=== PATIENT | female | born 2005 | race African-American/Black ===

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

== ENCOUNTER 2024-01-12 09:40 | Outpatient (REF) | payer OTHER, MEDICAID, SELFPAY ==
--- NOTE | ~2024-01-12 | XR_ITS ---
EXAMINATION: XR SHOULDER, LEFT CLINICAL INFORMATION: Left shoulder pain COMPARISON: None available. TECHNIQUE: AP external rotation, Grashey, scapular Y, and axillary views of the left shoulder. FINDINGS: The bones and soft tissues are normal. No fracture. Glenohumeral and acromioclavicular alignment is anatomic with normal joint space. No abnormal soft tissue calcifications. XR/XR shoulder LT min 2V IMPRESSION: Normal left shoulder. Electronically signed by: Carlos Stoll MD 02/05/2024 06:59 PM EDT RP
== END 2024-01-12 09:41 | disposition home or self-care (01) ==
LOC: HO.XRAY 09:40
PROVIDERS: Visit Provider Physician Assistant
DX: M25.512 Pain in left shoulder (principal); M77.8 Other enthesopathies, not elsewhere classified
CPT/HCPCS: 73030

== ENCOUNTER 2024-01-12 10:21 | Outpatient (AMB) | payer OTHER, MEDICAID, SELFPAY ==
--- NOTE | 2024-01-12 10:23 | A.OFFVIS_ITS ---
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 Patient was recently seen at [facility] on 12/19/23, xrays were taken and referred to orthopedics. Patient reports a shoulder pain began in June of this year after reaching over her head to grab something. Her pain comes with use of her arm and is located in the posterior aspect of shoulder as well as numbness and tingling that radiates down to her fingers tips as well as a cold sensation. States her shoulder feels weak. Limited ROM. Finds no relief with lidocaine patches. 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 She denies specific injury but does remember reaching up with her left arm and felt a pain in the left shoulder. She denies dislocation. She states that at time she experiences some popping sensation in the left shoulder. She also experiences some numbness that goes down the left arm into the hand. No treatment to date. [facility] Social History (Updated 01/12/24 @ 10:26 by Noy Chakraborty Itzel) Patient Tobacco Use Status: Never used Tobacco Current occupational status: unemployed Current occupation: right hand dominant Review of Systems Const All systems reviewed & are unremarkable except as noted in HPI and below Physical Exam Vital Signs: BMI result Body Mass Index 39.9 Const General: cooperative and no acute distress Orientation/consciousness: patient oriented x3 Resp Effort & Inspection: normal respiratory effort and able to speak in complete sentences Cardio Peripheral pulses: Peripheral pulses 2+ throughout Neuro General: patient oriented x3 Extrem Other: Left shoulder normal to inspection. She does have some protraction of the scapula. She has full range of motion with out significant discomfort. She does have some tenderness over the proximal biceps tendon. She has 5/5 strength with rotator cuff strengthening and she does have some discomfort with empty can testing but no notable weakness. Neurovascularly intact. Results Reviewed Results Reviewed: X-rays of the left shoulder obtained today are negative for any acute or chronic abnormalities. Assessment & Plan Assessment & Plan (1) Left shoulder tendonitis: Code(s): M77.8 - Other enthesopathies, not elsewhere classified Category: Medical Plan We discussed options which include PT and NSAIDs. She will proceed with PT and NSAIDs. If symptoms persist she will contact me, otherwise, prn. Orders: Orders XR shoulder LT min 2V Today M25.512 - Pain in left shoulder PT Evaluation and Treatment Today M77.8 - Other enthesopathies, not elsewhere classified Coding Level of Care Code New Pt Level 3 (17078) Complex EM visit Add On G2211 Diagnoses Left shoulder tendonitis M77.8
[2024-01-12 10:31] VITALS: BMI 39.9
== END 2024-01-12 11:10 | disposition home or self-care (01) ==
PROVIDERS: Visit Provider Physician Assistant
DX: M77.8 Other enthesopathies, not elsewhere classified (principal)
CPT/HCPCS: 99203; G2211